=== PATIENT | female | born 1960 | race Hispanic/Latino ===

== ENCOUNTER 2017-02-10 00:27 | Inpatient (IN) | payer OTHER ==
[2017-02-10 02:00] LABS: Basophils % (Auto) 0.2 % (0.0-1.8); Eosinophils % (Auto) 0.4 % (0.0-4.3); Hematocrit 37.2 % (30.3-42.9); Hemoglobin 12.5 gm/dl (10.1-14.3); Mean Corpuscular HGB Conc 34 % (30-34); Mean Corpuscular Hemoglobin 27 pg (28-32); Mean Corpuscular Volume 81 fl (79-97); Platelet Count 453 K/mm3 (140-440); Red Cell Distribution Width 15.6 % (13.2-15.2); White Blood Count 9.4 K/mm3 (4.5-11.0)
[2017-02-10 02:19] LABS: Anion Gap 20 mmol/L; BUN/Creatinine Ratio 18.33; Blood Urea Nitrogen 11 mg/dL (7-17); Calcium 9.4 mg/dL (8.4-10.2); Carbon Dioxide 25 mmol/L (22-30); Chloride 82.6 mmol/L (98-107); Glucose 131 mg/dL (65-100); Sodium 125 mmol/L (137-145)
[2017-02-10 02:36] LABS: Potassium 2.5 mmol/L (3.6-5.0)
[2017-02-10] MEDS ORDERED: K-DUR PO ONE (03:14)
[2017-02-10] MEDS ORDERED: ZOFRAN ODT PO ONE (03:14)
[2017-02-10] MEDS ORDERED: ZOFRAN IV ONE (03:16)
[2017-02-10] MEDS ORDERED: NACL 0.9% 1000 ML 1,000 ML IV ONE (03:16)
[2017-02-10] MEDS: KCL 10MEQ/100ML 10 MEQ/100 ML BAG IV SCH ×3 (03:43→06:04)
[2017-02-10 03:49] LABS: Alanine Aminotransferase 23 units/L (7-56); Albumin 3.9 g/dL (3.9-5); Albumin/Globulin Ratio 1.3 %; Alkaline Phosphatase 73 units/L (35-129); Bilirubin,Total 0.5 mg/dL (0.1-1.2); Lipase 50 units/L (13-60); Total Protein 6.8 g/dL (6.3-8.2)
[2017-02-10 03:52] LABS: Bilirubin,Direct < 0.2 mg/dL (0-0.2); Bilirubin,Indirect 0.3 mg/dL
[2017-02-10 04:47] LABS: Bilirubin,Urine NEG (Negative); Blood,Urine NEG (Negative); Ketones,Urine NEG (Negative); Leukocyte Esterase,Urine TR (Negative); Mucus,Urine FEW /HPF; Nitrite,Urine NEG (Negative); Protein,Urine <15 mg/dL mg/dL (Negative); Urobilinogen,Urine < 2.0 mg/dL (<2.0)
[2017-02-10] MEDS ORDERED: MAGNESIUM SULFATE 2GM/50ML 2 GM/50 ML BAG IV ONE (04:53)
--- NOTE | 2017-02-10 05:35 | Emergency Department Report ---
ED N/V/D HPI - General Chief complaint: Chest Pain Stated complaint: CP Source: patient Mode of arrival: Ambulatory Limitations: No Limitations - History of Present Illness Initial comments: 56-year-old female with a past medical history of GERD, high cholesterol, hypertension presents to the hospital complains of nausea and vomiting since 7 PM 02/09/2017. Patient states the last 2 weeks she's been experiencing flulike symptoms. She was diagnosed clinically with the flu and also was received one week's worth of doxycycline which she finished about a week ago. Patient was still having symptoms so therefore went back to the doctor and was given a steroids shots, nebs, and there was a prescription. 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 She received Tylenol did not get transported to the hospital can she felt better. She was continuing to hydrate and drink plenty of water. The next day patient went to work and by the evening time began having vomiting symptoms. After vomiting episodes patient reports a burning epigastric and chest pain. No reports of recent fever, hematemesis, hematochezia, or melena. Patient also denies abdominal pain at this time. No previous abdominal surgeries. - Related Data Home Medications Medication Instructions Recorded Confirmed Last Taken Levothyroxine 75 mcg PO DAILY 02/10/17 02/10/17 Unknown Losartan/Hydrochlorothiazide 1 tab PO DAILY 02/10/17 02/10/17 Unknown [Losartan-Hctz 100-25 mg Tab] Minocycline (Nf) 100 mg PO DAILY 02/10/17 02/10/17 Unknown Omeprazole 40 mg PO DAILY 02/10/17 02/10/17 Unknown Simvastatin 40 mg PO DAILY 02/10/17 02/10/17 Unknown metFORMIN 1,000 mg PO BID 02/10/17 02/10/17 Unknown Allergies Allergy/AdvReac Type Severity Reaction Status Date / Time morphine Allergy Swelling Verified 02/10/17 01:36 ED Review of Systems ROS: Stated complaint: CP Other details as noted in HPI Comment: All other systems reviewed and negative Other: Constitutional: No fevers chills Eyes: No eye pain visual changes ENT: No ear pain or throat pain Neck: Denies pain Respiratory: Denies cough wheezing shortness of breath Cardiovascular: Denies palpitations, syncope GI: Denies abdominal pain,diarrhea, melena hematochezia : Denies dysuria Musculoskeletal: Denies back pain Skin: Denies rash, lesions, erythema Neurologic: Denies headache, numbness, weakness ED Past Medical Hx - Past Medical History Hx Hypertension: Yes Hx Diabetes: Yes Hx GERD: Yes Additional medical history: High Cholesterol, Thyroid disease - Surgical History Additional Surgical History: Bilateral Breast Reduction, Bilateral Carpal Tunnel Repair - Social History Smoking Status: Never Smoker Substance Use Type: None - Medications Home Medications: Home Medications Medication Instructions Recorded Confirmed Last Taken Type Levothyroxine 75 mcg PO DAILY 02/10/17 02/10/17 Unknown History Losartan/Hydrochlorothiazide 1 tab PO DAILY 02/10/17 02/10/17 Unknown History [Losartan-Hctz 100-25 mg Tab] Minocycline (Nf) 100 mg PO DAILY 02/10/17 02/10/17 Unknown History Omeprazole 40 mg PO DAILY 02/10/17 02/10/17 Unknown History Simvastatin 40 mg PO DAILY 02/10/17 02/10/17 Unknown History metFORMIN 1,000 mg PO BID 02/10/17 02/10/17 Unknown History ED Physical Exam - General Limitations: No Limitations - Other Other exam information: General: No limitations, patient is alert in no acute distress Head exam: Atraumatic, normocephalic Eyes exam: Normal appearance, pupils equal reactive to light, extraocular movements intact ENT: Moist mucous membrane, normal oropharynx Neck exam: Normal inspection, full range of motion Respiratory exam: Clear to auscultation bilateral, no wheezes, rales, crackles Cardiovascular: Normal rate and rhythm, normal heart sounds Abdomen: Soft, nondistended, and nontender, with normal bowel sounds, no rebound, or guarding Extremity: Full range of motion normal inspection no deformity Back: Normal Inspection, full range of motion, no tenderness Neurologic: Alert, oriented x3, cranial nerves intact, no motor or sensory deficit Psychiatric: normal affect, normal mood Skin: Warm, dry, intact ED Course Vital Signs 02/10/17 02/10/17 02/10/17 01:26 03:38 04:00 Temperature 98.6 F Pulse Rate 86 70 Respiratory 16 11 L 14 Rate Blood Pressure 130/93 121/67 Blood Pressure 130/93 [Left] O2 Sat by Pulse 100 100 Oximetry 02/10/17 02/10/17 02/10/17 04:33 05:00 05:31 Temperature Pulse Rate 83 72 80 Respiratory 16 14 13 Rate Blood Pressure 121/67 124/73 124/73 Blood Pressure [Left] O2 Sat by Pulse 98 98 97 Oximetry - Reevaluation(s) Reevaluation #1: 02/10/17 05:57 pt tx in ed with KCL IV 30meg initiated, zofran, magnesium ordered, Pepcid, normal saline area in GI cocktail ordered only patient feels she can tolerate by mouth ED Medical Decision Making - Lab Data Result diagrams: 02/10/17 01:48 02/10/17 01:48 Lab Results 02/10/17 02/10/17 02/10/17 Range/Units 01:48 01:48 01:48 WBC 9.4 (4.5-11.0) K/mm3 RBC 4.60 (3.65-5.03) M/mm3 Hgb 12.5 (10.1-14.3) gm/dl Hct 37.2 (30.3-42.9) % MCV 81 (79-97) fl MCH 27 L (28-32) pg MCHC 34 (30-34) % RDW 15.6 H (13.2-15.2) % Plt Count 453 H (140-440) K/mm3 Lymph % (Auto) 33.1 (13.4-35.0) % [place] % (Auto) 7.6 H (0.0-7.3) % Eos % (Auto) 0.4 (0.0-4.3) % Baso % (Auto) 0.2 (0.0-1.8) % Lymph # 3.1 (1.2-5.4) K/mm3 [place] # 0.7 (0.0-0.8) K/mm3 Eos # 0.0 (0.0-0.4) K/mm3 Baso # 0.0 (0.0-0.1) K/mm3 Seg Neutrophils % 58.7 (40.0-70.0) % Seg Neutrophils # 5.5 (1.8-7.7) K/mm3 Sodium 125 L (137-145) mmol/L Potassium 2.5 L* (3.6-5.0) mmol/L Chloride 82.6 L (98-107) mmol/L Carbon Dioxide 25 (22-30) mmol/L Anion Gap 20 mmol/L BUN 11 (7-17) mg/dL Creatinine 0.6 L (0.7-1.2) mg/dL Estimated GFR > 60 ml/min BUN/Creatinine Ratio 18.33 % Glucose 131 H (65-100) mg/dL Calcium 9.4 (8.4-10.2) mg/dL Magnesium (1.7-2.3) mg/dL Total Bilirubin 0.5 (0.1-1.2) mg/dL Direct Bilirubin < 0.2 (0-0.2) mg/dL Indirect Bilirubin 0.3 mg/dL AST 22 (5-40) units/L ALT 23 (7-56) units/L Alkaline Phosphatase 73 (35-129) units/L Troponin T < 0.010 (0.00-0.029) ng/mL Total Protein 6.8 (6.3-8.2) g/dL Albumin 3.9 (3.9-5) g/dL Albumin/Globulin Ratio 1.3 % Lipase 50 (13-60) units/L Urine Color (Yellow) Urine Turbidity (Clear) Urine pH (5.0-7.0) Ur Specific [place] (1.003-1.030) Urine Protein (Negative) mg/dL Urine Glucose (UA) (Negative) mg/dL Urine Ketones (Negative) mg/dL Urine Blood (Negative) Urine Nitrite (Negative) Urine Bilirubin (Negative) Urine Urobilinogen (<2.0) mg/dL Ur Leukocyte Esterase (Negative) Urine WBC (Auto) (0.0-6.0) /HPF Urine RBC (Auto) (0.0-6.0) /HPF U Epithel Cells (Auto) (0-13.0) /HPF Urine Mucus /HPF 02/10/17 02/10/17 02/10/17 Range/Units 03:14 04:37 04:51 WBC (4.5-11.0) K/mm3 RBC (3.65-5.03) M/mm3 Hgb (10.1-14.3) gm/dl Hct (30.3-42.9) % MCV (79-97) fl MCH (28-32) pg MCHC (30-34) % RDW (13.2-15.2) % Plt Count (140-440) K/mm3 Lymph % (Auto) (13.4-35.0) % [place] % (Auto) (0.0-7.3) % Eos % (Auto) (0.0-4.3) % Baso % (Auto) (0.0-1.8) % Lymph # (1.2-5.4) K/mm3 [place] # (0.0-0.8) K/mm3 Eos # (0.0-0.4) K/mm3 Baso # (0.0-0.1) K/mm3 Seg Neutrophils % (40.0-70.0) % Seg Neutrophils # (1.8-7.7) K/mm3 Sodium (137-145) mmol/L Potassium (3.6-5.0) mmol/L Chloride (98-107) mmol/L Carbon Dioxide (22-30) mmol/L Anion Gap mmol/L BUN (7-17) mg/dL Creatinine (0.7-1.2) mg/dL Estimated GFR ml/min BUN/Creatinine Ratio % Glucose (65-100) mg/dL Calcium (8.4-10.2) mg/dL Magnesium 1.4 L (1.7-2.3) mg/dL Total Bilirubin (0.1-1.2) mg/dL Direct Bilirubin (0-0.2) mg/dL Indirect Bilirubin mg/dL AST (5-40) units/L ALT (7-56) units/L Alkaline Phosphatase (35-129) units/L Troponin T < 0.010 (0.00-0.029) ng/mL Total Protein (6.3-8.2) g/dL Albumin (3.9-5) g/dL Albumin/Globulin Ratio % Lipase (13-60) units/L Urine Color Yellow (Yellow) Urine Turbidity Clear (Clear) Urine pH 5.0 (5.0-7.0) Ur Specific [place] 1.008 (1.003-1.030) Urine Protein <15 mg/dl (Negative) mg/dL Urine Glucose (UA) Neg (Negative) mg/dL Urine Ketones Neg (Negative) mg/dL Urine Blood Neg (Negative) Urine Nitrite Neg (Negative) Urine Bilirubin Neg (Negative) Urine Urobilinogen < 2.0 (<2.0) mg/dL Ur Leukocyte Esterase Tr (Negative) Urine WBC (Auto) 3.0 (0.0-6.0) /HPF Urine RBC (Auto) 1.0 (0.0-6.0) /HPF U Epithel Cells (Auto) < 1.0 (0-13.0) /HPF Urine Mucus Few /HPF - EKG Data When compared to previous EKG there are: no significant change (compared to ) - Radiology Data Radiology results: report reviewed (nsr rate 89, pac's ) - Medical Decision Making Patient has significant lab abnormalities including hyponatremia, low k, low mag which could be due to his hydrochlorothiazide but also due to patient's recent increase water intake, vomiting and poor po intake. She will be admitted to the hospital for stabilization of nausea and vomiting and electrolyte replenishment. - Differential Diagnosis viral syndrome, gerd, electrolyte abgn, uti, pancreatitis, mi Critical Care Time: No Critical care attestation.: If time is entered above; I have spent that time in minutes in the direct care of this critically ill patient, excluding procedure time. ED Disposition Clinical Impression: Vomiting, Hyponatremia, Hypokalemia, Hypomagnesemia, Viral illness, Adverse effect of hydrochlorothiazide Disposition: OP ADMITTED IP TO THIS HOSP Is pt being admited?: Yes Does the pt Need Aspirin: No Condition: Stable Time of Disposition: 05:34 (Dr hopper/hosp)
[2017-02-10] MEDS ORDERED: PEPCID IV ONE (05:55)
[2017-02-10] MEDS ORDERED: ALUM-MAG HYDROX-SIMETH 200-200-20MG/5ML PO ONE (05:55)
[2017-02-10] MEDS ORDERED: LIDOCAINE VISCOUS 2% PO ONE (05:55)
[2017-02-10] MEDS ORDERED: NACL 0.9% 1000 ML 1,000 ML ONE (06:51)
--- NOTE | 2017-02-10 07:31 | History and Physical Report ---
History of Present Illness Date of examination: 02/10/17 History of present illness: 56-year-old female with a past medical history of GERD, high cholesterol, hypertension presents to the hospital complains of nausea and vomiting since 7 PM 02/09/2017. Patient states the last 2 weeks she's been experiencing flulike symptoms. She was diagnosed clinically with the flu and also was received one week's worth of doxycycline which she finished about a week ago. Patient was still having symptoms so therefore went back to the doctor and was given a steroids shots, nebs, and there was a prescription. 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 She received Tylenol did not get transported to the hospital can she felt better. She was continuing to hydrate and drink plenty of water. The next day patient went to work and by the evening time began having vomiting symptoms. After vomiting episodes patient reports a burning epigastric and chest pain. No reports of recent fever, hematemesis, hematochezia, or melena. Patient also denies abdominal pain at this time. No previous abdominal surgeries. Past History Past Medical History: diabetes, GERD, hypertension, hyperlipidemia, hypothyroidism Medications and Allergies Allergies Allergy/AdvReac Type Severity Reaction Status Date / Time morphine Allergy Swelling Verified 02/10/17 01:36 Home Medications Medication Instructions Recorded Confirmed Last Taken Type Levothyroxine 75 mcg PO DAILY 02/10/17 02/10/17 Unknown History Losartan/Hydrochlorothiazide 1 tab PO DAILY 02/10/17 02/10/17 Unknown History [Losartan-Hctz 100-25 mg Tab] Minocycline (Nf) 100 mg PO DAILY 02/10/17 02/10/17 Unknown History Omeprazole 40 mg PO DAILY 02/10/17 02/10/17 Unknown History Simvastatin 40 mg PO DAILY 02/10/17 02/10/17 Unknown History metFORMIN 1,000 mg PO BID 02/10/17 02/10/17 Unknown History Review of Systems Gastrointestinal: nausea, vomiting Exam - Constitutional Vitals: Temp Pulse Resp BP Pulse Ox 98.6 F 80 17 136/74 98 02/10/17 01:26 02/10/17 07:15 02/10/17 07:15 02/10/17 07:15 02/10/17 07:15 General appearance: Present: mild distress - EENT Eyes: Present: PERRL, EOM intact ENT: hearing intact, clear oral mucosa - Neck Neck: Present: supple, normal ROM - Respiratory Respiratory effort: normal Respiratory: bilateral: CTA - Cardiovascular Rhythm: regular Heart Sounds: Present: S1 & S2 - Extremities Extremities: no ischemia, No edema - Abdominal General gastrointestinal: Present: soft, non-tender, tender Localized gastrointestinal: tender: epigastric periumbilical - Musculoskeletal Musculoskeletal: strength equal bilaterally - Psychiatric Psychiatric: appropriate mood/affect, intact judgment & insight - Neurologic Neurologic: CNII-XII intact, moves all extremities Results - Labs CBC & Chem 7: 02/10/17 01:48 02/10/17 01:48 Labs: Laboratory Last Values WBC 9.4 K/mm3 (4.5-11.0) 02/10/17 01:48 RBC 4.60 M/mm3 (3.65-5.03) 02/10/17 01:48 Hgb 12.5 gm/dl (10.1-14.3) 02/10/17 01:48 Hct 37.2 % (30.3-42.9) 02/10/17 01:48 MCV 81 fl (79-97) 02/10/17 01:48 MCH 27 pg (28-32) L 02/10/17 01:48 MCHC 34 % (30-34) 02/10/17 01:48 RDW 15.6 % (13.2-15.2) H 02/10/17 01:48 Plt Count 453 K/mm3 (140-440) H 02/10/17 01:48 Lymph % (Auto) 33.1 % (13.4-35.0) 02/10/17 01:48 [place] % (Auto) 7.6 % (0.0-7.3) H 02/10/17 01:48 Eos % (Auto) 0.4 % (0.0-4.3) 02/10/17 01:48 Baso % (Auto) 0.2 % (0.0-1.8) 02/10/17 01:48 Lymph # 3.1 K/mm3 (1.2-5.4) 02/10/17 01:48 [place] # 0.7 K/mm3 (0.0-0.8) 02/10/17 01:48 Eos # 0.0 K/mm3 (0.0-0.4) 02/10/17 01:48 Baso # 0.0 K/mm3 (0.0-0.1) 02/10/17 01:48 Seg Neutrophils % 58.7 % (40.0-70.0) 02/10/17 01:48 Seg Neutrophils # 5.5 K/mm3 (1.8-7.7) 02/10/17 01:48 Sodium 125 mmol/L (137-145) L 02/10/17 01:48 Potassium 2.5 mmol/L (3.6-5.0) L* 02/10/17 01:48 Chloride 82.6 mmol/L (98-107) L 02/10/17 01:48 Carbon Dioxide 25 mmol/L (22-30) 02/10/17 01:48 Anion Gap 20 mmol/L 02/10/17 01:48 BUN 11 mg/dL (7-17) 02/10/17 01:48 Creatinine 0.6 mg/dL (0.7-1.2) L 02/10/17 01:48 Estimated GFR > 60 ml/min 02/10/17 01:48 BUN/Creatinine Ratio 18.33 % 02/10/17 01:48 Glucose 131 mg/dL (65-100) H 02/10/17 01:48 Calcium 9.4 mg/dL (8.4-10.2) 02/10/17 01:48 Magnesium 1.4 mg/dL (1.7-2.3) L 02/10/17 03:14 Total Bilirubin 0.5 mg/dL (0.1-1.2) 02/10/17 01:48 Direct Bilirubin < 0.2 mg/dL (0-0.2) 02/10/17 01:48 Indirect Bilirubin 0.3 mg/dL 02/10/17 01:48 AST 22 units/L (5-40) 02/10/17 01:48 ALT 23 units/L (7-56) 02/10/17 01:48 Alkaline Phosphatase 73 units/L (35-129) 02/10/17 01:48 Troponin T < 0.010 ng/mL (0.00-0.029) 02/10/17 04:51 Total Protein 6.8 g/dL (6.3-8.2) 02/10/17 01:48 Albumin 3.9 g/dL (3.9-5) 02/10/17 01:48 Albumin/Globulin Ratio 1.3 % 02/10/17 01:48 Lipase 50 units/L (13-60) 02/10/17 01:48 Urine Color Yellow (Yellow) 02/10/17 04:37 Urine Turbidity Clear (Clear) 02/10/17 04:37 Urine pH 5.0 (5.0-7.0) 02/10/17 04:37 Ur Specific [place] 1.008 (1.003-1.030) 02/10/17 04:37 Urine Protein <15 mg/dl mg/dL (Negative) 02/10/17 04:37 Urine Glucose (UA) Neg mg/dL (Negative) 02/10/17 04:37 Urine Ketones Neg mg/dL (Negative) 02/10/17 04:37 Urine Blood Neg (Negative) 02/10/17 04:37 Urine Nitrite Neg (Negative) 02/10/17 04:37 Urine Bilirubin Neg (Negative) 02/10/17 04:37 Urine Urobilinogen < 2.0 mg/dL (<2.0) 02/10/17 04:37 Ur Leukocyte Esterase Tr (Negative) 02/10/17 04:37 Urine WBC (Auto) 3.0 /HPF (0.0-6.0) 02/10/17 04:37 Urine RBC (Auto) 1.0 /HPF (0.0-6.0) 02/10/17 04:37 U Epithel Cells (Auto) < 1.0 /HPF (0-13.0) 02/10/17 04:37 Urine Mucus Few /HPF 02/10/17 04:37 Assessment and Plan - Patient Problems (1) Hypokalemia Current Visit: Yes Status: Acute Plan to address problem: Replete Potassium, Follow electrolytes (2) Vomiting Current Visit: Yes Status: Acute Qualifiers: Vomiting type: V Vomiting Intractability: V Nausea presence: N Plan to address problem: Admit to Medical floor, GI Consult for eval, Antiemetics
--- NOTE | 2017-02-10 07:59 | Admit Criteria Form ---
Admission Criteria Documentation: VOMITING Clinical Indications for Admission to Inpatient Care ( Place 'X' for any and all applicable criteria): Admission is indicated for ANY ONE of the following(1)(2)(3): [X ]I. Inpatient admission required rather than observation care because of ANY ONE of the following: [ ]i) Hemodynamic instability that is severe or persistent [ ]ii) Vomiting that is severe or persistent [X ]iii) Severe electrolyte abnormalities requiring inpatient care [ ]iv) Severe pain requiring acute inpatient management [ ]v) High fever or infection requiring inpatient admission as indicated by ANY ONE of the following(7)(8): [ ]1) Appropriate outpatient or observation care antimicrobial treatment unavailable, not effective, or not feasible [ ]2) Documented bacteremia [ ]3) Temp >104.9 degrees F (40.5 degrees C) (oral) [ ]4) Temp >103.1 degrees F (39.5 C) (oral) or <96.8 degrees F (36 C) (rectal) that does not respond to all emergency treatment measures [ ]vi) Acute renal failure [ ]vii) IV fluid to replace significant ongoing losses (greater than 3 L/m2 per day) [ ]viii) Parenteral nutrition regimen that must be implemented on inpatient basis [ ]ix) Other condition, treatment or monitoring requiring inpatient admission [ ]II. Complete or partial gastrointestinal obstruction [ ]III. Other cause of vomiting requiring hospitalization (eg, poisoning, increased intracranial pressure) [ ]IV. Vomiting due to significant metabolic derangement (eg, severe hypercalcemia, diabetic ketoacidosis) Extended stay beyond goal length of stay may be needed for(1)(4): [ ]a) Severe vomiting [ ]b) Persistent vomiting, vital sign changes, severe electrolyte imbalance , or diagnosed cause of vomiting that requires continued hospitalization (eg, gastrointestinal obstruction , increased intracranial pressure) [ ]c) Surgery to treat identified causes of vomiting (eg, bowel obstruction , intracranial process) [ ]d) Comorbid illness that requires inpatient care (eg, acute heart failure , renal failure) [ ]e) Need for inpatient endoscopy The original [facility] [employer] content created by [employer] has been revised. The portions of the content which have been revised are identified through the use of italic text or in bold, and [facility] [employer] has neither reviewed nor approved the modified material. All other unmodified content is copyright [facility]. Please see references footnoted in the original [facility] edition 2016 Admission Criteria Met: Yes
[2017-02-10] MEDS ORDERED: DULCOLAX PR PRN (08:00)
[2017-02-10] MEDS ORDERED: TYLENOL PO PRN (08:00)
[2017-02-10] MEDS ORDERED: ZOFRAN IV PRN (08:00)
[2017-02-10] MEDS ORDERED: MILK OF MAGNESIA PO PRN (08:00)
[2017-02-10] MEDS ORDERED: D5NS 1,000 ML IV ONE (09:17)
[2017-02-10] MEDS: D5NS 1,000 ML IV SCH ×2 (09:21→19:19)
[2017-02-10] MEDS ORDERED: NON-FORMULARY (Metformin 1,000 MG) PO SCH (10:00)
[2017-02-10] MEDS ORDERED: LOVENOX SUB-Q SCH (10:00)
[2017-02-10] MEDS ORDERED: NON-FORMULARY (Levothyroxine 75 MCG) PO SCH (10:00)
[2017-02-10] MEDS ORDERED: MINOCYCLINE 100 MG PO SCH (10:00)
[2017-02-10] MEDS ORDERED: NON-FORMULARY (Simvastatin 40 MG) PO SCH (10:00)
[2017-02-10] MEDS ORDERED: NON-FORMULARY (Losartan/Hydrochlorothiazide [Losartan-Hctz 100-25 Mg Tab] 1 TAB) PO SCH (10:00)
[2017-02-10] MEDS ORDERED: NON-FORMULARY (Omeprazole 40 MG) PO SCH (10:00)
[2017-02-10] MEDS: PROTONIX PO SCH (11:22)
[2017-02-10] MEDS: HCTZ PO SCH (11:23)
[2017-02-10] MEDS: LOVENOX SUB-Q SCH (11:23)
[2017-02-10] MEDS: COZAAR PO SCH (11:23)
[2017-02-10] MEDS: SYNTHROID PO SCH (11:23)
[2017-02-10] MEDS: GLUCOPHAGE PO SCH (17:37)
--- NOTE | 2017-02-10 19:57 | Consultation ---
History of Present Illness - Reason for Consult Consult date: 02/10/17 - History of Present Illness See Dictated note. Medications and Allergies Allergies Allergy/AdvReac Type Severity Reaction Status Date / Time morphine Allergy Swelling Verified 02/10/17 01:36 Home Medications Medication Instructions Recorded Confirmed Last Taken Type Levothyroxine 75 mcg PO DAILY 02/10/17 02/10/17 Unknown History Losartan/Hydrochlorothiazide 1 tab PO DAILY 02/10/17 02/10/17 Unknown History [Losartan-Hctz 100-25 mg Tab] Minocycline (Nf) 100 mg PO DAILY 02/10/17 02/10/17 Unknown History Omeprazole 40 mg PO DAILY 02/10/17 02/10/17 Unknown History Simvastatin 40 mg PO DAILY 02/10/17 02/10/17 Unknown History metFORMIN 1,000 mg PO BID 02/10/17 02/10/17 Unknown History Active Meds: Active Medications Acetaminophen (Tylenol) 650 mg PO Q4H PRN PRN Reason: Pain MILD(1-3)/Fever >100.5/[place] Bisacodyl (Dulcolax) 10 mg OR QDAY PRN PRN Reason: Constipation unrelieved by MOM Enoxaparin Sodium (Lovenox) 40 mg SUB-Q QDAY@1000 [facility] Last Admin: 02/10/17 11:23 Dose: 40 mg Hydrochlorothiazide (Hctz) 25 mg PO QDAY [facility] Last Admin: 02/10/17 11:23 Dose: 25 mg Dextrose/Sodium Chloride (D5ns) 1,000 mls @ 125 mls/hr IV DIRECT [facility] Last Admin: 02/10/17 19:19 Dose: 125 mls/hr Levothyroxine Sodium (Synthroid) 75 mcg PO DAILY@0600 [facility] Last Admin: 02/10/17 11:23 Dose: 75 mcg Losartan Potassium (Cozaar) 100 mg PO QDAY [facility] Last Admin: 02/10/17 11:23 Dose: 100 mg Magnesium Hydroxide (Milk Of Magnesia) 30 ml PO Q4H PRN PRN Reason: Constipation Last Admin: 02/10/17 08:40 Dose: 30 ml Metformin HCl (Glucophage) 1,000 mg PO BIDDIAB [facility] Last Admin: 02/10/17 17:37 Dose: 1,000 mg Miscellaneous Medication (Minocycline (Nf)) 100 mg PO DAILY [facility] Ondansetron HCl (Zofran) 4 mg IV Q8H PRN PRN Reason: N/V unrelieved by Nikolas Pantoprazole Sodium (Protonix) 40 mg PO DAILY [facility] Last Admin: 02/10/17 11:22 Dose: 40 mg Simvastatin (Zocor) 40 mg PO QHS [facility] Exam - Constitutional Vitals: Temp Pulse Resp BP Pulse Ox 98 F 80 20 98/64 97 02/10/17 15:49 02/10/17 15:49 02/10/17 15:49 02/10/17 15:49 02/10/17 11:49 Results - Labs CBC & Chem 7: 02/10/17 01:48 02/10/17 01:48 Labs: Abnormal lab results 02/10/17 02/10/17 Range/Units 12:10 17:31 POC Glucose 137 H 129 H (70-105) Assessment and Plan Pt with 2 wk hx of flu-like syndrome, with poor po intake and free H2O intake, adm with N/V, and electrolyte imbalance. Now feeling much better. Chest pain due to costochondritis. Imp - N/V - due to hyponatremia, and other electrolyte distubances. Rec - Correct lytes, and if nesha po, D/C to home.
[2017-02-10] MEDS: ZOCOR PO SCH (23:04)
--- NOTE | 2017-02-11 06:13 | Consultation ---
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 She was in her usual state of good health until approximately 2 weeks ago when she developed upper respiratory tract infection and flu-like symptoms with cough productive of multicolored sputum as well as fevers, chills, and sweats. She was seen by Dr. Daigle her primary. She was started on doxycycline, which she finished approximately a week ago. She was having ongoing symptoms and last week, she had a chest x-ray done which she states was negative and was given steroids and breathing treatment and a steroid Dosepak. Symptoms persisted and this week, she was prescribed an 800 mg ibuprofen, which she took one dose of and had some abdominal discomfort. However, she felt well the next morning and went to work for 10 hours on , 02/09/2017. That evening, she started to cough and this led to vomiting. She then tried to drink some liquids later on and also developed nausea and vomiting, so she presented to the Emergency Room for evaluation and was admitted for further management. The patient notes that during this whole time, she has not been eating much. Yesterday, she did drink 16 glasses of water, but prior to that, she had been drinking approximately four glasses of water as well as Gatorade and other things. However, she had mainly a loss of appetite and therefore was not eating. She denied any abdominal pain. There has been no GI bleeding. The patient does take a daily ____ omeprazole for GERD chronically. Her bowel movements occur 3 times a day and are probably unchanged, though there have been over the last 2 weeks some changes with constipation alternating with diarrhea. Yesterday, she did note some bright red blood on toilet paper when she wiped. She last had a colonoscopy 7 years ago and has a history of colon polyps. She denies any weight loss and currently has no fevers, chills, or sweats. Of note, currently she complains of lower substernal pain or epigastric pain, especially with coughing. ALLERGIES: She has no known drug allergies except MORPHINE. HOME MEDICATIONS: She is at home on simvastatin, levothyroxine, omeprazole, metformin, minocycline, and losartan/hydrochlorothiazide. Her hospital medications were reviewed. PAST MEDICAL HISTORY: She has a history of; 1. Glucose intolerance. 2. GERD - on chronic omeprazole 40 mg a day. 3. Hypertension. 4. Hyperlipidemia. 5. Bilateral breast reduction. 6. Bilateral carpal tunnel release. FAMILY HISTORY: Negative for malignancy. SOCIAL HISTORY: She denies tobacco and rarely drinks alcohol. PHYSICAL EXAMINATION: GENERAL: This is a moderately obese middle-aged white female lying in bed in no apparent distress. VITAL SIGNS: Temperature is 98.0, pulse 80, blood pressure is 98/64. HEENT: She is anicteric. Pupils are round and reactive. Oropharynx is clear. LUNGS: Clear bilaterally to auscultation. CARDIOVASCULAR: Regular with no extra heart sounds. CHEST: Reveals tenderness in the lower costochondral region near the xiphoid process. ABDOMEN: Soft, good bowel sounds. No organomegaly or tenderness to deep palpation. RECTAL: Deferred. EXTREMITIES: Reveal no cyanosis, clubbing, or edema. NEUROLOGIC: She is alert and oriented x 3. Grossly nonfocal. LABORATORY DATA: White count is 9.4, hemoglobin 12.5, hematocrit 37.2, MCV of 81, platelet count of 453,000. Sodium 125, potassium 2.5, chloride 83, bicarbonate 25, BUN 11, creatinine 0.6, glucose 131. AST is 22, ALT is 23, alkaline phosphatase 73, total bilirubin is 0.5, albumin is 3.9, lipase is normal at 50. Magnesium was low at 1.4. IMPRESSION AND PLAN: 1. Nausea/vomiting -- these have improved markedly with electrolytes. I believe these are due to electrolyte abnormality with hyponatremia, hypokalemia, and hypomagnesemia, all contributing to her symptomatology. As these are corrected, I expect her symptoms to resolve. No further evaluation is warranted for the nausea and vomiting. The patient had no other fatty food intolerance or symptoms prior to this, therefore, making biliary colic less likely. Peptic ulcer disease is also unlikely since the patient is on chronic proton pump inhibitors. 2. Bright red blood per rectum - this is related to the change in bowel movements with diarrhea, etc. that she has been having with her recent illness. No evaluation is warranted as an inpatient. As an outpatient, the patient warrants surveillance colonoscopy. 3. Epigastric/lower chest pain - due to costochondritis from coughing. No specific therapy is indicated. JOB# [id number] HRC/NTS
[2017-02-11 06:40] LABS: Alanine Aminotransferase 18 units/L (7-56); Albumin 3.3 g/dL (3.9-5); Albumin/Globulin Ratio 1.4 %; Alkaline Phosphatase 62 units/L (35-129); BUN/Creatinine Ratio 5.71; Bilirubin,Total 0.5 mg/dL (0.1-1.2); Blood Urea Nitrogen 4 mg/dL (7-17); Calcium 8.6 mg/dL (8.4-10.2); Glucose 113 mg/dL (65-100); Total Protein 5.6 g/dL (6.3-8.2)
[2017-02-11 06:41] LABS: Anion Gap 16 mmol/L; Basophils % (Auto) 0.3 % (0.0-1.8); Eosinophils % (Auto) 0.9 % (0.0-4.3); Hematocrit 32.4 % (30.3-42.9); Hemoglobin 10.8 gm/dl (10.1-14.3); Mean Corpuscular HGB Conc 33 % (30-34); Mean Corpuscular Hemoglobin 28 pg (28-32); Mean Corpuscular Volume 82 fl (79-97); Platelet Count 381 K/mm3 (140-440); Red Blood Count 3.94 M/mm3 (3.65-5.03); Red Cell Distribution Width 16.1 % (13.2-15.2); White Blood Count 5.5 K/mm3 (4.5-11.0)
[2017-02-11 06:42] LABS: Carbon Dioxide 32 mmol/L (22-30); Potassium 2.5 mmol/L (3.6-5.0); Sodium 139 mmol/L (137-145)
[2017-02-11] MEDS: SYNTHROID PO SCH (07:04)
[2017-02-11] MEDS ORDERED: KCL 10MEQ/100ML 10 MEQ/100 ML BAG IV SCH (09:00)
[2017-02-11] MEDS: GLUCOPHAGE PO SCH (09:11)
[2017-02-11] MEDS: D5NS 1,000 ML IV SCH ×2 (09:12→18:05)
[2017-02-11] MEDS: KCL 10MEQ/100ML 10 MEQ/100 ML BAG IV SCH ×4 (09:30→15:44)
[2017-02-11] MEDS: HCTZ PO SCH (10:00)
[2017-02-11] MEDS: COZAAR PO SCH (10:00)
[2017-02-11] MEDS: LOVENOX SUB-Q SCH (10:51)
--- NOTE | 2017-02-11 12:11 | Gastroenterology Progress Note ---
Assessment and Plan GI: pt presented with flu like symptoms along with nausea, vomiting now improving - start po and advance as tolerated - replete K per primary team - if tolerating po ok to d/c from GI standpoint - will follow for now Subjective Date of service: 02/11/17 Interval history: - reports nausea, vomiting improved. Denies other complaints Objective - Constitutional Vitals: Temp Pulse Resp BP Pulse Ox 98.6 F 74 20 98/63 96 02/11/17 07:35 02/11/17 07:35 02/11/17 07:35 02/11/17 07:35 02/11/17 07:35 General appearance: no acute distress - Respiratory Respiratory: bilateral: CTA - Cardiovascular Rhythm: regular Heart Sounds: Present: S1 & S2 - Gastrointestinal General gastrointestinal: Present: soft, non-tender - Labs CBC & Chem 7: 02/11/17 05:47 02/11/17 05:47 Labs: Laboratory Results - last 24 hr 02/10/17 02/10/17 02/10/17 12:10 17:31 21:18 WBC RBC Hgb Hct MCV MCH MCHC RDW Plt Count Lymph % (Auto) [place] % (Auto) Eos % (Auto) Baso % (Auto) Lymph # [place] # Eos # Baso # Seg Neutrophils % Seg Neutrophils # Sodium Potassium Chloride Carbon Dioxide Anion Gap BUN Creatinine Estimated GFR BUN/Creatinine Ratio Glucose POC Glucose 137 H 129 H 125 H Calcium Total Bilirubin AST ALT Alkaline Phosphatase Total Protein Albumin Albumin/Globulin Ratio 02/11/17 02/11/17 02/11/17 05:47 05:47 06:40 WBC 5.5 RBC 3.94 Hgb 10.8 Hct 32.4 MCV 82 MCH 28 MCHC 33 RDW 16.1 H Plt Count 381 Lymph % (Auto) 41.2 H [place] % (Auto) 9.6 H Eos % (Auto) 0.9 Baso % (Auto) 0.3 Lymph # 2.3 [place] # 0.5 Eos # 0.0 Baso # 0.0 Seg Neutrophils % 48.0 Seg Neutrophils # 2.6 Sodium 139 D Potassium 2.5 L* Chloride 94.0 L Carbon Dioxide 32 H D Anion Gap 16 BUN 4 L Creatinine 0.7 Estimated GFR > 60 BUN/Creatinine Ratio 5.71 Glucose 113 H POC Glucose 104 Calcium 8.6 Total Bilirubin 0.5 AST 15 ALT 18 Alkaline Phosphatase 62 Total Protein 5.6 L Albumin 3.3 L Albumin/Globulin Ratio 1.4
--- NOTE | 2017-02-11 12:17 | Progress Note ---
Assessment and Plan Assessment and plan: --Intractable nausea and vomiting/acute gastritis Significant improvement, antiemetics, IV fluids Clear liquid diet, advance as tolerated --Hypokalemia replace per protocol and monitor levels --Type 2 diabetes mellitus Accu-Chek sliding scale coverage ADA diet, oral hypoglycemics --History of hypothyroidism, continue Synthroid --Recent flu, supportive care --DVT prophylaxis with Lovenox Advance the diet as tolerated Possibly discharge home tomorrow if stable GI evaluation and recommendations noted and appreciated Plan of care discussed with patient and her nurse History Interval history: Patient seen and evaluated medical records reviewed Admitted with intractable nausea vomiting, significant improvement today Patient is alert awake oriented 3 not in acute distress Hospitalist Physical - Constitutional Vitals: Temp Pulse Resp BP Pulse Ox 98.6 F 74 20 98/63 96 02/11/17 07:35 02/11/17 07:35 02/11/17 07:35 02/11/17 07:35 02/11/17 07:35 General appearance: Present: no acute distress, well-nourished, obese - EENT Eyes: Present: PERRL, EOM intact - Neck Neck: Present: supple, normal ROM - Respiratory Respiratory effort: normal Respiratory: bilateral: diminished, negative: rales, rhonchi, wheezing - Cardiovascular Rhythm: regular Heart Sounds: Present: S1 & S2 - Extremities Extremities: no ischemia, pulses intact, pulses symmetrical Peripheral Pulses: within normal limits - Abdominal General gastrointestinal: soft, non-tender, non-distended, normal bowel sounds - Integumentary Integumentary: Present: clear, warm - Psychiatric Psychiatric: appropriate mood/affect, cooperative - Neurologic Neurologic: CNII-XII intact, moves all extremities Results - Labs CBC & Chem 7: 02/11/17 05:47 02/11/17 05:47 Labs: Laboratory Last Values WBC 5.5 K/mm3 (4.5-11.0) 02/11/17 05:47 RBC 3.94 M/mm3 (3.65-5.03) 02/11/17 05:47 Hgb 10.8 gm/dl (10.1-14.3) 02/11/17 05:47 Hct 32.4 % (30.3-42.9) 02/11/17 05:47 MCV 82 fl (79-97) 02/11/17 05:47 MCH 28 pg (28-32) 02/11/17 05:47 MCHC 33 % (30-34) 02/11/17 05:47 RDW 16.1 % (13.2-15.2) H 02/11/17 05:47 Plt Count 381 K/mm3 (140-440) 02/11/17 05:47 Lymph % (Auto) 41.2 % (13.4-35.0) H 02/11/17 05:47 [place] % (Auto) 9.6 % (0.0-7.3) H 02/11/17 05:47 Eos % (Auto) 0.9 % (0.0-4.3) 02/11/17 05:47 Baso % (Auto) 0.3 % (0.0-1.8) 02/11/17 05:47 Lymph # 2.3 K/mm3 (1.2-5.4) 02/11/17 05:47 [place] # 0.5 K/mm3 (0.0-0.8) 02/11/17 05:47 Eos # 0.0 K/mm3 (0.0-0.4) 02/11/17 05:47 Baso # 0.0 K/mm3 (0.0-0.1) 02/11/17 05:47 Seg Neutrophils % 48.0 % (40.0-70.0) 02/11/17 05:47 Seg Neutrophils # 2.6 K/mm3 (1.8-7.7) 02/11/17 05:47 Sodium 139 mmol/L (137-145) D 02/11/17 05:47 Potassium 2.5 mmol/L (3.6-5.0) L* 02/11/17 05:47 Chloride 94.0 mmol/L (98-107) L 02/11/17 05:47 Carbon Dioxide 32 mmol/L (22-30) H D 02/11/17 05:47 Anion Gap 16 mmol/L 02/11/17 05:47 BUN 4 mg/dL (7-17) L 02/11/17 05:47 Creatinine 0.7 mg/dL (0.7-1.2) 02/11/17 05:47 Estimated GFR > 60 ml/min 02/11/17 05:47 BUN/Creatinine Ratio 5.71 % 02/11/17 05:47 Glucose 113 mg/dL (65-100) H 02/11/17 05:47 POC Glucose 104 (70-105) 02/11/17 06:40 Calcium 8.6 mg/dL (8.4-10.2) 02/11/17 05:47 Magnesium 1.4 mg/dL (1.7-2.3) L 02/10/17 03:14 Total Bilirubin 0.5 mg/dL (0.1-1.2) 02/11/17 05:47 Direct Bilirubin < 0.2 mg/dL (0-0.2) 02/10/17 01:48 Indirect Bilirubin 0.3 mg/dL 02/10/17 01:48 AST 15 units/L (5-40) 02/11/17 05:47 ALT 18 units/L (7-56) 02/11/17 05:47 Alkaline Phosphatase 62 units/L (35-129) 02/11/17 05:47 Troponin T < 0.010 ng/mL (0.00-0.029) 02/10/17 07:40 Total Protein 5.6 g/dL (6.3-8.2) L 02/11/17 05:47 Albumin 3.3 g/dL (3.9-5) L 02/11/17 05:47 Albumin/Globulin Ratio 1.4 % 02/11/17 05:47 Lipase 50 units/L (13-60) 02/10/17 01:48 Urine Color Yellow (Yellow) 02/10/17 04:37 Urine Turbidity Clear (Clear) 02/10/17 04:37 Urine pH 5.0 (5.0-7.0) 02/10/17 04:37 Ur Specific [place] 1.008 (1.003-1.030) 02/10/17 04:37 Urine Protein <15 mg/dl mg/dL (Negative) 02/10/17 04:37 Urine Glucose (UA) Neg mg/dL (Negative) 02/10/17 04:37 Urine Ketones Neg mg/dL (Negative) 02/10/17 04:37 Urine Blood Neg (Negative) 02/10/17 04:37 Urine Nitrite Neg (Negative) 02/10/17 04:37 Urine Bilirubin Neg (Negative) 02/10/17 04:37 Urine Urobilinogen < 2.0 mg/dL (<2.0) 02/10/17 04:37 Ur Leukocyte Esterase Tr (Negative) 02/10/17 04:37 Urine WBC (Auto) 3.0 /HPF (0.0-6.0) 02/10/17 04:37 Urine RBC (Auto) 1.0 /HPF (0.0-6.0) 02/10/17 04:37 U Epithel Cells (Auto) < 1.0 /HPF (0-13.0) 02/10/17 04:37 Urine Mucus Few /HPF 02/10/17 04:37
[2017-02-11] MEDS: PROTONIX PO SCH (16:48)
[2017-02-11] MEDS: ROBITUSSIN DM PO PRN ×2 (18:10→23:04)
[2017-02-11 21:35] LABS: Magnesium 1.9 mg/dL (1.7-2.3)
[2017-02-11] MEDS: ZOCOR PO SCH (21:40)
[2017-02-11 22:13] LABS: Potassium 2.8 mmol/L (3.6-5.0)
[2017-02-12] MEDS: D5NS 1,000 ML IV SCH (02:54)
[2017-02-12] MEDS: SYNTHROID PO SCH (05:45)
[2017-02-12 08:24] LABS: Basophils % (Auto) 0.5 % (0.0-1.8); Eosinophils % (Auto) 3.1 % (0.0-4.3); Hematocrit 30.3 % (30.3-42.9); Hemoglobin 9.9 gm/dl (10.1-14.3); Mean Corpuscular HGB Conc 33 % (30-34); Mean Corpuscular Hemoglobin 27 pg (28-32); Mean Corpuscular Volume 83 fl (79-97); Platelet Count 338 K/mm3 (140-440); Red Blood Count 3.66 M/mm3 (3.65-5.03); Red Cell Distribution Width 16.2 % (13.2-15.2); White Blood Count 4.4 K/mm3 (4.5-11.0)
[2017-02-12] MEDS: ROBITUSSIN DM PO PRN (08:39)
[2017-02-12 08:53] LABS: Alanine Aminotransferase 15 units/L (7-56); Albumin 3.3 g/dL (3.9-5); Albumin/Globulin Ratio 1.8 %; Alkaline Phosphatase 54 units/L (35-129); Anion Gap 13 mmol/L; BUN/Creatinine Ratio 7.14; Bilirubin,Total 0.4 mg/dL (0.1-1.2); Blood Urea Nitrogen 5 mg/dL (7-17); Calcium 8.4 mg/dL (8.4-10.2); Carbon Dioxide 31 mmol/L (22-30); Chloride 99.2 mmol/L (98-107); Glucose 117 mg/dL (65-100); Potassium 3.1 mmol/L (3.6-5.0); Sodium 140 mmol/L (137-145); Total Protein 5.1 g/dL (6.3-8.2)
[2017-02-12 10:40] VITALS: BP 110/74
[2017-02-12] MEDS: PROTONIX PO SCH (10:51)
[2017-02-12] MEDS: LOVENOX SUB-Q SCH (10:53)
[2017-02-12] MEDS: HCTZ PO SCH (10:53)
[2017-02-12] MEDS: COZAAR PO SCH (10:53)
[2017-02-12] MEDS ORDERED: K-DUR PO ONE (11:40)
--- NOTE | 2017-02-12 11:42 | Discharge Summary ---
Providers - Providers Date of Admission: 02/10/17 07:33 Date of discharge: 02/12/17 Attending physician: AC BLOUNT 02/10/17 17:19 Consult to Physician [CONS] Routine Consulting Provider: NINA WOODS Reason For Exam: nausea, vomiting Place consult to:: [facility] Notified:: OFFICE Phone number called:: [phone] Was contact made?: Yes If yes, spoke with:: CE Time called:: 17:21 Primary care physician: IT APPLICATIONS DEVELOPER Hospitalization Condition: Stable Disposition: DISCHARGED TO HOME OR SELFCARE Core Measure Documentation - Palliative Care Palliative Care/ Comfort Measures: Not Applicable - Core Measures Any of the following diagnoses?: none Exam - Constitutional Vitals: Temp Pulse Resp BP Pulse Ox 97.8 F 74 20 110/74 97 02/12/17 08:20 02/12/17 08:20 02/12/17 08:20 02/12/17 08:20 02/12/17 08:20 General appearance: Present: no acute distress, well-nourished - EENT Eyes: Present: PERRL, EOM intact - Neck Neck: Present: supple, normal ROM - Respiratory Respiratory effort: normal Respiratory: negative: rales, rhonchi, wheezing - Cardiovascular Rhythm: regular Heart Sounds: Present: S1 & S2 - Extremities Extremities: no ischemia, pulses intact, pulses symmetrical Peripheral Pulses: within normal limits - Abdominal General gastrointestinal: Present: soft, non-tender, non-distended, normal bowel sounds - Integumentary Integumentary: Present: clear, warm - Musculoskeletal Musculoskeletal: strength equal bilaterally, generalized weakness - Psychiatric Psychiatric: appropriate mood/affect - Neurologic Neurologic: CNII-XII intact, moves all extremities Plan Activity: no restrictions Diet: low salt Additional Instructions: Check with PMD before resuming metformin Follow up with: PRIMARY CAREMD [Primary Care Provider] - 3-5 Days HEMA BERNARD MD [Staff Physician] - 7 Days Prescriptions: Azithromycin [Zithromax Z-ESTELITA] 0 mg PO DAILY #1 tab guaiFENesin DM [Robitussin Dm] 10 ml PO Q6HR PRN 10 Days PRN Reason: Cough
--- NOTE | 2017-02-12 11:43 | Gastroenterology Progress Note ---
Assessment and Plan GI: overall improved, tolerating po - ok to d/c from GI standpoint - will sign off, call if needed Subjective Date of service: 02/12/17 Interval history: - feeling better, tolerating po Objective - Constitutional Vitals: Temp Pulse Resp BP Pulse Ox 97.8 F 74 20 110/74 97 02/12/17 08:20 02/12/17 08:20 02/12/17 08:20 02/12/17 08:20 02/12/17 08:20 General appearance: no acute distress - Respiratory Respiratory: bilateral: CTA - Cardiovascular Rhythm: regular Heart Sounds: Present: S1 & S2 - Labs CBC & Chem 7: 02/12/17 07:42 02/12/17 07:42 Labs: Laboratory Results - last 24 hr 02/11/17 02/11/17 02/12/17 21:04 21:19 06:18 WBC RBC Hgb Hct MCV MCH MCHC RDW Plt Count Lymph % (Auto) [place] % (Auto) Eos % (Auto) Baso % (Auto) Lymph # [place] # Eos # Baso # Seg Neutrophils % Seg Neutrophils # Sodium Potassium 2.8 L* Chloride Carbon Dioxide Anion Gap BUN Creatinine Estimated GFR BUN/Creatinine Ratio Glucose POC Glucose 100 120 H Calcium Magnesium 1.9 Total Bilirubin AST ALT Alkaline Phosphatase Total Protein Albumin Albumin/Globulin Ratio 02/12/17 02/12/17 07:42 07:42 WBC 4.4 L RBC 3.66 Hgb 9.9 L Hct 30.3 MCV 83 MCH 27 L MCHC 33 RDW 16.2 H Plt Count 338 Lymph % (Auto) 43.4 H [place] % (Auto) 9.9 H Eos % (Auto) 3.1 Baso % (Auto) 0.5 Lymph # 1.9 [place] # 0.4 Eos # 0.1 Baso # 0.0 Seg Neutrophils % 43.1 Seg Neutrophils # 1.9 Sodium 140 Potassium 3.1 L Chloride 99.2 Carbon Dioxide 31 H Anion Gap 13 BUN 5 L Creatinine 0.7 Estimated GFR > 60 BUN/Creatinine Ratio 7.14 Glucose 117 H POC Glucose Calcium 8.4 Magnesium Total Bilirubin 0.4 AST 12 ALT 15 Alkaline Phosphatase 54 Total Protein 5.1 L Albumin 3.3 L Albumin/Globulin Ratio 1.8
== END 2017-02-12 15:15 | disposition home or self-care (01) | DRG 641 ==
LOC: ED 00:27 → 3A 07:33
PROVIDERS: ADMIT Internal Medicine; ATTEND Internal Medicine
DX: E87.1 Hypo-osmolality and hyponatremia (principal); E87.6 Hypokalemia; K21.9 Gastro-esophageal reflux disease without esophagitis; I10 Essential (primary) hypertension; E11.9 Type 2 diabetes mellitus without complications; E83.42 Hypomagnesemia; E03.9 Hypothyroidism, unspecified; T50.2X5A Adverse effect of carbonic-anhydrase inhibitors, benzothiadiazides and other diuretics, initial encounter; E78.5 Hyperlipidemia, unspecified; M94.0 Chondrocostal junction syndrome [Tietze]; Z79.84 Long term (current) use of oral hypoglycemic drugs; Y92.89 Other specified places as the place of occurrence of the external cause; Z88.5 Allergy status to narcotic agent
CPT/HCPCS: 36415; 80048; 80053; 80074; 81001; 82962; 83690; 83735; 84132; 84484; 85025; 93005; 93010; 96361; 96365; 96375; J1650; J2405; J3475; J3480; J7030; J7042